=== PATIENT | male | born 1940 | race Caucasian/White ===

== ENCOUNTER 2020-03-21 12:08 | Outpatient (CLI) | payer MEDICARE, OTHER ==
--- NOTE | 2020-03-21 12:52 | RAD ---
Exam: 3 views of the cervical spine HISTORY: Radiculopathy FINDINGS: Lateral neutral: Mild to moderate loss of disc space height and osteophyte formation at C3- C4, C5-C6 and C6-C7. Cervical spine vertebral body heights are maintained. No fracture. Predental space is normal. No prevertebral soft tissue swelling. There is straightening of cervical lordosis. Spondylolisthesis: C7-T1: Neutral 3.3 mm of anterolisthesis; extension: Anterolisthesis appears to resolve; flexion 2.3 mm of anterolisthesis. IMPRESSION: Grade 1 anterolisthesis of C7 upon T1.
--- NOTE | 2020-03-21 13:21 | MRI ---
MRI Cervical spine without IV contrast: HISTORY: Cervical radiculopathy. COMPARISON: 05/24/2015 FINDINGS: The craniocervical junction is unremarkable. No significant cord signal abnormality. Paravertebral soft tissues have a normal appearance and normal signal intensity. There is mild heterogeneity of the bone marrow which is unchanged from prior exam. Multilevel degener ative changes are again seen in the cervical spine. C1-2:No significant stenosis. C2-3: Mild broad-based disc osteophyte complex is present which narrows the ventral subarachnoid spac e. Facet degenerative changes are present greater on the left. Neural foramina are patent. C3-4: Again noted is loss of intervertebral disc height. Broad-based disc osteophyte complex is again present which narrows the ventral subarachnoid space. Mild facet hypertrophic changes are seen. Mild bilateral neural foraminal narrowing is present greater on the left. C4-5: Again noted is a mild broad-based disc osteophyte complex with prominent uncinate process hyper trophy again seen on the right. There is mild effacement of the ventral subarachnoid space. The left neural foramen is patent. Mild right-sided neural foraminal narrowing is present. C5-6: Loss of intervertebral disc height is again present. A broad-based disc osteophyte complex is s een and similar to prior exam. This again narrows the ventral subarachnoid space. Left neural foramen is patent, but there is mild right-sided neural foraminal narrowing. C6-7: Mild loss of intervertebral disc height. Mild broad-based disc osteophyte complex is present wh ich results in slight effacement of the ventral subarachnoid space. Neural foramina demonstrate no significant narrowing. C7-T1: There is no disc bulge or disc herniation. The central spinal canal and neural foramina are pa tent. IMPRESSION: Multilevel disc degenerative changes not significantly progressed compared to prior study in 2015.
== END 2020-03-21 12:09 | disposition home or self-care (01) ==
LOC: TBSIIMAG 12:08
PROVIDERS: ATTEND Neurological Surgery
DX: M50.10 Cervical disc disorder with radiculopathy, unspecified cervical region (principal); M43.13 Spondylolisthesis, cervicothoracic region
CPT/HCPCS: 72040; 72141

== ENCOUNTER 2022-01-24 12:35 | Outpatient (CLI) | payer MEDICARE, OTHER | END 2022-01-24 12:36 | disposition home or self-care (01) | LOC: TBSIIMAG 12:35 | PROVIDERS: ATTEND Urology | DX: C61 Malignant neoplasm of prostate (principal); K40.90 Unilateral inguinal hernia, without obstruction or gangrene, not specified as recurrent | CPT/HCPCS: 72197; 82565 ==

== ENCOUNTER 2023-08-26 16:17 | Outpatient (CLI) | payer MEDICARE, OTHER | END 2023-08-26 16:18 | disposition home or self-care (01) | LOC: RAD 16:17 | PROVIDERS: ATTEND Student in an Organized Health Care Education/Training Program | DX: S20.212A Contusion of left front wall of thorax, initial encounter (principal); S49.92XA Unspecified injury of left shoulder and upper arm, initial encounter ==